=== PATIENT | male | born 1935 | race Caucasian/White ===

== ENCOUNTER → 2017-01-18 | Outpatient (CLI) | payer MEDICARE, BC ==
[~2017-01-18] MED LIST: ASCO-296 PO; ASPI-146 PO; ASPI-558 PO; MULT-795 PO; OLME20TA11 PO
--- NOTE | 2017-01-18 08:45 | DI ---
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 FINDINGS: The left kidney is surgically absent. The right kidney measures 11.1 cm in length and again demonstrates a 1.6 cm cyst but appears otherwise normal sonographically with normal cortical thickness and echogenicity. No evidence for collecting system dilatation, contour deforming mass, nephrolithiasis, or abnormal perinephric fluid collection. IMPRESSION: 1. 1.6 cm right renal cyst, unchanged since 2013, with an otherwise normal sonographic appearance of the right kidney. 2. Status post left nephrectomy. .
== END ==
LOC: IMA 07:22
PROVIDERS: ATTEND Specialist
DX: N18.3 Chronic kidney disease, stage 3 (moderate) (principal); C64.2 Malignant neoplasm of left kidney, except renal pelvis; Z90.5 Acquired absence of kidney; N28.1 Cyst of kidney, acquired